=== PATIENT | female | born 2000 | race Hispanic/Latino ===

== ENCOUNTER 2020-10-07 12:17 | Emergency (ER) | payer OTHER, SELFPAY ==
[2020-10-07] MEDS ORDERED: Boostrix 0.5 ML (Tdap) VIAL ONE (12:44)
--- NOTE | 2020-10-07 12:46 | RAD ---
Exam:3 views right foot HISTORY: Pain. Trauma. COMPARISON: None FINDINGS: Lisfranc alignment is maintained. Joint spaces are preserved. Injury involving the distal p halanx of the second digit. There is amputation of the overlying soft tissues. No other fracture, cortical irregularity or periosteal reaction. IMPRESSION: 1. Amputation of the distal aspect of the second digit with associated fracture of the distal phalanx .
[2020-10-07] MEDS ORDERED: Lidocaine 2% PF 100 mg/5 ml Syringe ONE (13:02)
[2020-10-07] MEDS ORDERED: Lidocaine 1% (PF) 30 ML VIAL ONE (13:04)
[2020-10-07] MEDS ORDERED: Bacitracin 1 PK ONE (13:35)
== END 2020-10-07 13:55 | disposition home or self-care (01) ==
LOC: NAV ERS 12:17
DX: S98.141A Partial traumatic amputation of one right lesser toe, initial encounter (principal); W55.89XA Other contact with other mammals, initial encounter
CPT/HCPCS: 11750; 90471; 90715; J2001